=== PATIENT | male | born 1965 | race Caucasian/White ===

== ENCOUNTER 2016-10-25 10:46 | Emergency (ER) | payer BC ==
[2016-10-25 11:31] VITALS: BP 132/89
--- NOTE | 2016-10-25 12:23 | UC ---
UC General HPI - HPI Summary HPI Summary: he had laparoscopic left shoulder surgery and left wrist carpal tunnel release 5d ago. General anesthesia. Surgery went well, but ever since then he has felt extreme fatigue, some light-headedness. He has been up and moving around since surgery, wearing sling on left arm but otherwise resuming regular activities. Not using any pain meds other than Tylenol. He is surprised that he is very fatigued, occasionally light-headed. Poor appetite for past few days. This has occurred in past with surgeries (NUMEROUS joint procedures), and he has attributed it to the anesthesia. He called his Orthopedic Surgeon today to report that his left fingers are still numb, mentioned these symptoms to the telephone nurse, and she urged him to come in for evaluation. - History of Current Complaint Chief Complaint: UCGeneralIllness Stated Complaint: CHILLS LOW GRADE FEVER LOW BACK PAIN Time Seen by Provider: 10/25/16 11:56 Hx Obtained From: Patient Onset/Duration: Gradual Onset, Lasting Days - 5 Timing: Constant Onset Severity: Mild Current Severity: Mild - does seem to be improving today Associated Signs & Symptoms: Positive: Dizziness - off and on, Decreased Oral Intake - taking lots of fluids, not so hungry for food recently, Nausea - off and on, mild, Weakness - generalized. Negative: Confusion, Cough, Chest Pain, Dysuria, Diaphoresis, Fever, Hematemesis, Hemoptysis, Immunocompromised, Palpitations, Recent Medication Changes, Syncope, SOB, Trauma, Vomiting, Wheezing - Allergy/Home Medications Allergies/Adverse Reactions: Allergies Allergy/AdvReac Type Severity Reaction Status Date / Time bee stings Allergy Severe systemic Uncoded 10/25/16 11:20 reaction sodium pentothal Allergy headache, Uncoded 10/25/16 11:20 severe nausea anesthesia AdvReac takes a Uncoded 10/25/16 11:20 long time to wake up Home Medications: Home Medications Tkeidot-Qukxutnikuixr-Mjqllptp [Excedrin Extra Strength] 2 tab PO Q4H PRN [History Confirmed 10/25/16] Fenofibrate Micronized [Fenofibrate] 43 mg PO DAILY 10/25/16 [History Confirmed 10/25/16] PMH/Surg Hx/FS Hx/Imm Hx Previously Healthy: Yes - Surgical History Surgical History: Yes Surgery Procedure, Year, and Place: KNEE SX. SHOULDER SX - Family History Known Family History: Negative: Renal Disease, Respiratory Disease - Social History Occupation: Employed Full-time Lives: With Family Alcohol Use: None Substance Use Type: None Smoking Status (MU): Never Smoked Tobacco Review of Systems Constitutional: Negative Skin: Negative Eyes: Negative ENT: Negative Respiratory: Negative Cardiovascular: Negative Gastrointestinal: Negative Genitourinary: Negative Motor: Decreased ROM - left shoulder, in a sling Neurovascular: Negative Musculoskeletal: Negative Neurological: Paresthesia - left fingers Psychological: Negative All Other Systems Reviewed And Are Negative: Yes Physical Exam Triage Information Reviewed: Yes Appearance: Well-Appearing, No Pain Distress, Well-Nourished Vital Signs: Initial Vital Signs Temp 97.3 F 10/25/16 11:23 Pulse 101 10/25/16 11:23 Resp 18 10/25/16 11:23 BP 132/89 10/25/16 11:23 Pulse Ox 99 10/25/16 11:23 Vital Signs Reviewed: Yes Eye Exam: Normal ENT Exam: Normal ENT: Positive: Normal ENT inspection, Pharynx normal, TMs normal. Negative: Tonsillar swelling, Tonsillar exudate, Trismus, Muffled/hoarse voice Neck exam: Normal Neck: Positive: Supple Respiratory Exam: Normal Respiratory: Positive: Lungs clear, Normal breath sounds, No respiratory distress, No accessory muscle use Cardiovascular Exam: Normal Abdominal Exam: Normal Musculoskeletal Exam: Other - left arm in sling. Surgical sites on left shoulder look fine, minimal redness, no drainage. Left wrist surgical incision without drainage or redness. Neurological Exam: Normal, Other - animated conversation, seems to be full of energy, walks briskly around the room without distress Neurological: Positive: Alert Psychological Exam: Normal Skin Exam: Normal Course/Dx - Course Course Of Treatment: no evidence of PE or wound infection - Differential Dx - Multi-Symptom Provider Diagnoses: fatigue post-surgery Discharge - Discharge Plan Condition: Stable Disposition: HOME Patient Education Materials: Fatigue (ED) Referrals: Monica Cortez MD [Primary Care Provider] - Additional Instructions: There is no evidence that you have a wound infection from your surgery. Your urine test was normal and your vital signs are normal. There is no evidence of a blood clot in your lungs. You may be tired from the surgery itself, or possibly as a result of the anesthesia. These symptoms should fade away over the next few days.
== END 2016-10-25 12:19 | disposition home or self-care (01) ==
LOC: UCCORT 10:46
DX: R53.83 Other fatigue (principal); Z98.890 Other specified postprocedural states; Z88.4 Allergy status to anesthetic agent
CPT/HCPCS: 99211; G0463

== ENCOUNTER 2017-09-16 21:03 | Emergency (ER) | payer BC ==
[2017-09-16 21:19] VITALS: BP 141/89
--- NOTE | 2017-09-16 21:38 | UC ---
Respiratory Complaint HPI - HPI Summary HPI Summary: COUGH / CHEST CONGESTION X 4 WEEKS PND , DISCOMFORT ON HIS THROAT, NO FEVER, NO CHILLS, - History of Current Complaint Chief Complaint: UCRespiratory Stated Complaint: RESPIRATORY Time Seen by Provider: 09/16/17 21:13 Hx Obtained From: Patient Onset/Duration: Gradual Onset, Lasting Weeks - 4, Still Present Timing: Constant Severity Initially: Moderate Severity Currently: Moderate Character: Cough: Nonproductive Aggravating Factors: Deep Breaths Associated Signs And Symptoms: Positive: URI. Negative: Fever, Chills, Pleuritic Chest Pain - Allergies/Home Medications Allergies/Adverse Reactions: Allergies Allergy/AdvReac Type Severity Reaction Status Date / Time bee stings Allergy Severe systemic Uncoded 09/16/17 21:18 reaction sodium pentothal Allergy headache, Uncoded 09/16/17 21:18 severe nausea anesthesia AdvReac takes a Uncoded 09/16/17 21:18 long time to wake up PMH/Surg Hx/FS Hx/Imm Hx Previously Healthy: Yes - Surgical History Surgical History: Yes Surgery Procedure, Year, and Place: KNEE SX. SHOULDER SX - Family History Known Family History: Negative: Renal Disease, Respiratory Disease - Social History Alcohol Use: None Substance Use Type: None Smoking Status (MU): Never Smoked Tobacco Review of Systems Constitutional: Negative Skin: Negative Eyes: Negative ENT: Other - PND Respiratory: Cough Is Patient Immunocompromised?: No All Other Systems Reviewed And Are Negative: Yes Physical Exam Triage Information Reviewed: Yes Appearance: Well-Appearing, No Pain Distress, Well-Nourished Vital Signs: Initial Vital Signs Temp 97.7 F 09/16/17 21:11 Pulse 77 09/16/17 21:11 Resp 16 09/16/17 21:11 BP 141/89 09/16/17 21:11 Pulse Ox 98 09/16/17 21:11 Vital Signs Reviewed: Yes Eyes: Positive: Conjunctiva Clear ENT: Positive: Normal ENT inspection, Hearing grossly normal, Pharynx normal. Negative: Nasal drainage Neck: Positive: Supple, Nontender, No Lymphadenopathy Respiratory: Positive: Chest non-tender, Lungs clear, Normal breath sounds Cardiovascular: Positive: RRR, No Murmur, Pulses Normal Skin Exam: Normal UC Diagnostic Evaluation - Laboratory O2 Sat by Pulse Oximetry: 98 Respiratory Course/Dx - Differential Dx/Diagnosis Provider Diagnoses: URI Discharge - Discharge Plan Condition: Stable Disposition: HOME Patient Education Materials: Upper Respiratory Infection (ED) Referrals: Monica Cortez MD [Primary Care Provider] - 2 Weeks Additional Instructions: CLEAR LUNGS, NORMAL PHYSICAL EXAM ? GERD / POST NASAL DRIP TRY FLONASE NASAL SPRAY 2SPRAY EACH NOSTRIL DAILY FOR THE NEXT 2 WEEKS PLEASE FOLLOW UP WITH YOUR PCP IN 2 TO 4 WEEKS IF NOT BETTER, MAY NEED A REFERRAL TO ENT IF NOT BETTER
== END 2017-09-16 21:39 | disposition home or self-care (01) ==
LOC: UCCORT 21:03
DX: J06.9 Acute upper respiratory infection, unspecified (principal); Z88.8 Allergy status to other drugs, medicaments and biological substances; Z88.4 Allergy status to anesthetic agent; Z91.030 Bee allergy status
CPT/HCPCS: 99211; G0463

== ENCOUNTER 2019-05-11 21:44 | Emergency (ER) | payer BC ==
--- OUTSIDE RECORDS SUMMARY | 2019-05-11 21:51 | XMS REPORT | Continuity of Care Document ---
:1965 External Reference #:[id number] Author Name Monica Cortez MD (transmitted by agent of provider Opal Camacho) Address [address] [place] [address] Problems Active Problems Provider Date Testicular hypofunction Monica Cortez MD Onset: 11/11/2011 Generalized anxiety disorder Monica Cortez MD Onset: 11/11/2011 Dizziness and giddiness Monica Cortez MD Onset: 10/04/2012 Allergic rhinitis Monica Cortez MD Onset: 10/11/2012 Partial Tear Of Rotator Cuff Monica Cortez MD Onset: 06/13/2013 Social History Type Date Description Comments Sex Unknown Tobacco Use Start: Unknown Never Smoked Cigarettes ETOH Use Denies alcohol use Recreational Drug Use Denies Drug Use Tobacco Use Start: Unknown Patient has never smoked Smoking Status Reviewed: 09/07/17 Patient has never smoked Allergies, Adverse Reactions, Alerts Active Allergies Reaction Severity Comments Date Levaquin dizziness 07/21/2010 Sodium Pentathol 09/07/2017 Medications Active Medications SIG Qnty Indications Ordering Date Provider Vitamin D-1000 2 by mouth every 100tabs Monica Cortez MD 04/19/2019 Maximum Strength day 1000Unit Tablets Tricor 1 tab po qd 90tabs Monica Cortez MD 07/07/2016 48mg Tablets Paxil 1 tab by mouth 90tabs Monica Cortez MD 06/19/2015 20mg Tablets qd. Epipen 2-Aníbal as directed as 1unoskar Maza, 03/11/2006 needed M.D. 0.3mg/0.3ML Solution Auto-Inject Zyrtec Allergy tab 1 po q day 30caps Unknown 10mg Capsules [facility] Esomeprazole Unknown Magnesium 20mg Capsules Vitamin D-1000 1 by mouth every Unknown Maximum Strength day 1000Unit Tablets Multi For Him 1 by mouth every Unknown Tablets day Medications Administered in Office Medication SIG Qnty Indications Ordering Provider Date H1N1 Administration-Use Monica Cortez MD 07/03/2009 Injection Immunizations CPT Code Status Date Vaccine Lot # [id number] Given 05/22/2018 Influenza Virus (Afluria) Split Virus 3 Years Of Age And Older [id number] Given 05/22/2018 Influenza Virus (Afluria) Split Virus 3 Years Of Age And Older [id number] Given 05/11/2017 Influenza Virus (Afluria) Split Virus 3 Years Of Age And Older [id number] Given 05/11/2017 Influenza Virus (Afluria) Split Virus 3 Years [id number] Of Age And Older [id number] Given 04/28/2016 Influenza Vaccine (Fluvirin) 3 Years Of Age Or [id number] Older [id number] Given 04/30/2015 Influenza Virus (Afluria) Split Virus 3 Years [id number] Of Age And Older [id number] Given 05/13/2014 Influenza Vaccine (Fluvirin) 3 Years Of Age Or Older [id number] Given 05/13/2014 Influenza Vaccine (Fluvirin) 3 Years Of Age Or [id number] Older Q2038 Given 05/16/2013 Influenza Vaccine (Fluzone) Administered Age 3 [id number] And Older Q2038 Given 05/16/2013 Influenza Vaccine (Fluzone) Administered Age 3 And Older Q2037 Given 05/08/2012 Influenza Vaccine (Fluvirin) 3 Years Of Age Or Older [id number] Given 05/08/2012 Influenza Vaccine (Fluvirin) 3 Years Of Age Or [id number] Older [id number] Given 11/11/2011 Tetanus,Diphtheria,Adut/Adol Pertussis [id number] Given 06/03/2011 Flulaval [id number] Given 05/18/2010 Influenza Vaccine [id number] Given 01/14/2010 Tetanus Shot [id number] 75054 Given 04/15/2009 Influenza Vaccine [id number] 73432 Given 05/23/2008 Influenza Vaccine [id number] Given 08/29/1997 DT Immunization DIP/Tet (History Only) Vital Signs Date Vital Result Comment 04/19/2019 1:46pm BP Systolic 130 mmHg BP Diastolic 82 mmHg Heart Rate 82 /min Height 71 inches 5'11" Weight 252.00 lb BMI (Body Mass Index) 35.1 kg/m2 O2 % BldC Oximetry 95 % 10/18/2018 11:09am BP Systolic 128 mmHg BP Diastolic 88 mmHg Results Test Date Facility Test Result H/L Range Note Basic Metabolic 04/09/2019 [facility] Glucose 88 mg/ dL Normal 74-106 [address] [place] [address] [phone] BUN 15 mg/dL Normal 7-18 Creatinine 1.3 mg/dL Normal 0.6-1.3 Glom Filtration Rate, Estimate >60 mL/min >60 If >60 mL/min >60 2 BUN/Creat 11.5 ratio Sodium 141 mmol/L Normal 136-145 Potassium 3.9 mmol/L Normal 3.5-5.1 Chloride 108 mmol/L High 98-107 Carbon Dioxide 26 mmol/L Normal 21-32 Anion Gap 7 mEq/L Low 8-16 Calcium 8.8 mg/dL Normal 8.5-10.1 CBS W/Automated 04/09/2019 [facility] White 4.8 K/uL Normal 3.4-10.[address] [place] [address] Count [phone] Red Blood Count 5.30 M/uL Normal 4.20-5.80 Hemoglobin 14.9 gm/dL Normal 12.8-17.0 Hematocrit 46.7 % Normal 38.0-48.0 Mean Cell Volume 88.1 fl Normal 80.0-96.0 Mean Corpuscular HGB 28.1 pg Normal 27.0-33.0 Mean Corpuscular HGB Conc 31.9 g/dL Normal 31.7-36.0 Platelet Count 226 K/uL Normal 155-360 Red Cell Distri Width SD 43.5 fl Normal 36-51 Red Cell Distri Width %CV 13.5 % Normal 11.6-15.8 Mean Platelet Volume 10.3 fl Normal 6.6-10.6 Neut% 47.2 % Normal 33.0-73.0 Lymph % 36.0 % Normal 20.0-42.0 [place] % 11.8 % High 0.0-10.0 Eo% 3.6 % Normal 0.0-6.6 Bas% 0.8 % Normal 0.0-1.1 Immature Grans 0.6 % Normal 0.0-5.0 NRBC % 0.0 /100WBC < 10/ 100 WBC Neut# 2.24 K/uL Normal 1.8-7.0 Lymph # 1.71 K/uL Normal 1.0-4.0 [place] # 0.56 K/uL Normal 0.0-0.8 Eos # 0.17 K/uL Normal 0.0-0.5 Baso # 0.04 K/uL Normal 0.0-0.1 Immature Grans Absolute 0.03 K/uL NRBC # 0.00 K/uL LDL Cholesterol 04/09/2019 [facility] Cholesterol 166 mg/dL <200 3 [address] [place], [place] [id number] [phone] Triglycerides 240 mg/dL High <150 4 HDL Cholesterol 30 mg/dL Low >40 5 LDL-Cholesterol 88 mg/dL < 100 6 Laboratory test 12/30/2018 [facility] CK 137 U/L Normal 39-308 [address] [place], [place] [id number] [phone] 1 Z12.5 E29.1 E23.6 I34.0 E78.5 2 Note: Persistent reduction for 3 months or more in an eGFR <60 mL/min/1.73 m2 defines CKD. Patients with eGFR values >/=60 mL/min/1.73 m2 may also have CKD if evidence of persistent proteinuria is present. The original MDRD equation for estimated GFR is not valid for patients less than 18 years of age. Additional information may be found at www.kdoqi.org. 3 Reference Guidelines*: Desirable: ........... < 200 mg/dL Borderline High: ..... 200-239 mg/dL High: ................ >= 240 mg/dL * The National Cholesterol Education Program (NCEP) 4 Reference Guidelines*: Normal: ............. < 150 mg/dL Borderline High: .... 150-199 mg/dL High: ............... 200-499 mg/dL Very High: .......... > 500 mg/dL * Source: National Cholesterol Education Program (NCEP) 5 Reference Guidelines*: Low HDL: ..... < 40 mg/dL Normal: ..... 40-60 mg/dL Desirable: ... > 60 mg/dL *The National Cholesterol Education Program(NCEP) 6 Reference Guidelines*: Optimal:........... <100 mg/dL Near Optimal....... 100-129 mg/dL Borderline High.... 130-159 mg/dL High............... 160-189 mg/dL Very High.......... >=190 mg/dL * Source: National Cholesterol Education Program (NCEP) 7 E78.5 I11.0 E29.1 Procedures Description No Information Available Medical Devices Description No Information Available Encounters Type Date Location Provider Dx Diagnosis Office Visit 04/19/2019 Main Office Monica Cortez MD E29.1 Testicular hypofunction 1:45p F41.1 Generalized anxiety disorder K21.0 Gastro-esophageal reflux disease with esophagitis E78.5 Hyperlipidemia, unspecified Assessments Date Code Description Provider 04/19/2019 E29.1 Testicular hypofunction Monica Cortez MD 04/19/2019 F41.1 Generalized anxiety disorder Monica Cortez MD 04/19/2019 K21.0 Gastro-esophageal reflux disease with esophagitis Monica Cortez MD 04/19/2019 E78.5 Hyperlipidemia, unspecified Monica Cortez MD Plan of Treatment Future Appointment(s):10/15/2019 8:00 am - Nurse at Main Yxmmpt0110/29/2019 3: 00 pm - Monica Cortez MD at Main Uclrnb5904/19/2019 - Monica Cortez MDE29.1 Testicular znvjogyrpwhdR30.1 Generalized anxiety sxnobmlcW76.0 Gastro-esophageal reflux disease with peohchlwjxrU88.5 Hyperlipidemia, unspecifiedAllNew Medication: Vitamin D-1000 Maximum Strength 1000 Unit - 2 by mouth every dayComments:UARTO NEXT WEEK NURSE VISIT FOR FLU VACRTO SEP FOR CPEGHP,LIPIDS BEFORE VISIT Functional Status Description No Information Available Mental Status Description No Information Available Referrals Description No Information Available
--- OUTSIDE RECORDS SUMMARY | 2019-05-11 21:51 | XMS REPORT | Continuity of Care Document ---
:1965 External Reference #:[id number] Author Name Adrián Gardner PA Address [address] [facility], [address] [place] [address] Care Team Providers Name Role Phone Monica Cortez MD - Internal Medicine Care Team Information Travel Service Consultant Problems Active Problems Provider Date Chest pain Turner Armas M.D., Onset: 08/24/2013 [facility] Benign essential hypertension Turner Armas M.D., Onset: 08/24/2013 [facility] Gastroesophageal reflux disease Mike Rodriguez MD Onset: 11/03/2017 Screening for malignant neoplasm of Mike Rodriguez MD Onset: 11/03/2017 colon Social History Type Date Description Comments Sex Unknown Tobacco Use Start: Unknown Never Smoked Cigarettes Smokeless Tobacco Former Smokeless Tobacco User, Used Occasionally ETOH Use Rarely consumes alcohol Tobacco Use Start: Unknown Patient denies history of smoking Recreational Drug Use Denies Drug Use Smoking Status Reviewed: 03/08/19 Patient denies history of smoking Allergies, Adverse Reactions, Alerts Active Allergies Reaction Severity Comments Date Bee Sting Sodium Pentathol Medications Active Medications SIG Qnty Indications Ordering Date Provider Esomeprazole take 1 capsule 30caps Mike Rodriguez, 04/24/2018 Magnesium every morning 20mg Capsules Paroxetine HCL 1 po qd 90tabs Unknown 20mg Tablets Epipen 2-Aníbal prn- for allergic Unknown reactions 0.3mg/0.3ML Device Fenofibrate 1 tab po qd Monica Cortez MD 48mg Tablets Multivitamin Adult 1 by mouth every Unknown day Tablets Immunizations Description No Information Available Vital Signs Date Vital Result Comment 03/08/2019 2:32pm BP Systolic 134 mmHg BP Diastolic 95 mmHg Body Temperature 97.8 F Heart Rate 79 /min Respiratory Rate 16 /min Height 72 inches 6'0" Weight 251.00 lb BMI (Body Mass Index) 34.0 kg/m2 BSA (Body Surface Area) 2.35 m2 [place] body weight in kilograms 81 kg O2 % BldC Oximetry 95 % 03/08/2019 2:29pm Respiratory Rate 16 /min Weight 251.06 lb Results Test Date Facility Test Result H/L Range Note Laboratory test 04/09/2019 [facility] Prostate 0.83 ng/mL < 4.0 1, [address] [place] [address] Antigen [phone] CBC W/Automated 04/09/2019 [facility] White Blood 4.8 K/uL Normal 3.4-10.[address] [place] [address] [phone] Red Blood Count 5.30 M/uL Normal 4.20-5.80 [...] 33.0-73.0 Lymph % 36.0 % Normal 20.0-42.0 [place] % 11.8 % High 0.0-10.0 Eo% 3.6 % Normal 0.0-6.6 Bas% 0.8 % Normal 0.0-1.1 Immature Grans 0.6 % Normal 0.0-5.0 NRBC % 0.0 /100WBC < 10/ 100 WBC Neut# 2.24 K/uL Normal 1.8-7.0 Lymph # 1.71 K/uL Normal 1.0-4.0 [place] # 0.56 K/uL Normal 0.0-0.8 Eos # 0.17 K/uL Normal 0.0-0.5 Baso # 0.04 K/uL Normal 0.0-0.1 Immature Grans Absolute 0.03 K/uL NRBC # 0.00 K/uL Basic Metabolic Panel 04/09/2019 [facility] Glucose 88 mg/dL Normal 74-106 [address] [place] [address] [phone] BUN 15 mg/dL Normal 7-18 Creatinine 1.3 mg/dL Normal 0.6-1.3 Glom Filtration Rate, Estimate >60 mL/min >60 If >60 mL/min >60 3 BUN/Creat 11.5 ratio Sodium 141 mmol/L Normal 136-145 Potassium 3.9 mmol/L Normal 3.5-5.1 Chloride 108 mmol/L High 98-107 Carbon Dioxide 26 mmol/L Normal 21-32 Anion Gap 7 mEq/L Low 8-16 Calcium 8.8 mg/dL Normal 8.5-10.1 LDL Cholesterol Profile 04/09/2019 [facility] Cholesterol 166 mg/dL <200 4 [address] [place] [address] [phone] Triglycerides 240 mg/dL High <150 5 HDL Cholesterol 30 mg/dL Low >40 6 LDL-Cholesterol 88 mg/dL < 100 7 Laboratory 04/09/2019 [facility] Testosterone,Serum 247 Low 264-916 8 test finding [address] ng/[place] [address] [phone] Laboratory 03/08/2019 [facility] Prostate Specific 0.95 < 4.0 9, test finding [address] Antigen ng/mL 10 [place] [address] [phone] Testosterone,Serum 209 ng/dL Low 264-916 11 1 Z12.5 E29.1 E23.6 I34.0 E78.5 2 THIS ASSAY IS NOT INTENDED A CANCER SCREENING TEST The concentration of PSA in a given specimen, determined with assays from different manufacturers, can vary due to differences in assay methods and reagent specificity. Values obtained from different assay methods cannot be used interchangeably. Method: Alert[employer]prise Montalba Chemiluminescent immunoassay. 3 Note: Persistent reduction for 3 months or more in an eGFR <60 mL/min/1.73 m2 defines CKD. Patients with eGFR values >/=60 mL/min/1.73 m2 may also have CKD if evidence of persistent proteinuria is present. The original MDRD equation for estimated GFR is not valid for patients less than 18 years of age. Additional information may be found at www.kdoqi.org. 4 Reference Guidelines*: Desirable: ........... < 200 mg/dL Borderline High: ..... 200-239 mg/dL High: ................ >= 240 mg/dL * The National Cholesterol Education Program (NCEP) 5 Reference Guidelines*: Normal: ............. < 150 mg/dL Borderline High: .... 150-199 mg/dL High: ............... 200-499 mg/dL Very High: .......... > 500 mg/dL * Source: National Cholesterol Education Program (NCEP) 6 Reference Guidelines*: Low HDL: ..... < 40 mg/dL Normal: ..... 40-60 mg/dL Desirable: ... > 60 mg/dL *The National Cholesterol Education Program(NCEP) 7 Reference Guidelines*: Optimal:........... <100 mg/dL Near Optimal....... 100-129 mg/dL Borderline High.... 130-159 mg/dL High............... 160-189 mg/dL Very High.......... >=190 mg/dL * Source: National Cholesterol Education Program (NCEP) 8 Adult male reference interval is based on a population of healthy nonobese males (BMI <30) between 19 and 39 years old. michael Cespedes.al. JCEM 2017,102;6735-7890. PMID: 67447930. Performed at: RN - [facility] [address] [id number] Hydraulic Auto Jack Mechanic: Ashlee Byrnes MD, Phone: [phone] 9 Z12.5 E29.1 10 THIS ASSAY IS NOT INTENDED A CANCER SCREENING TEST The concentration of PSA in a given specimen, determined with assays from different manufacturers, can vary due to differences in assay methods and reagent specificity. Values obtained from different assay methods cannot be used interchangeably. Method: Siemens Dimension Montalba Chemiluminescent immunoassay. 11 Adult male reference interval is based on a population of healthy nonobese males (BMI <30) between 19 and 39 years old. Coy et.al. JCEM 2017,102;8330-9568. PMID: 48253890. Performed at: [facility] [id number] Hydraulic Auto Jack Mechanic: Ashlee Byrnes MD, Phone: [phone] Procedures Date Code Description Status 03/08/2019 72884 Anoscopy Completed 04/24/2018 39345757 Colonoscopy Completed Medical Devices Description No Information Available Encounters Type Date Location Provider Dx Diagnosis Office Visit 03/08/2019 GI Mike Rodriguez MD K64.0 First degree 3:00p hemorrhoids K63.5 Polyp of colon K21.0 Gastro-esophageal reflux disease with esophagitis Office Visit 11/24/2018 Orthopaedic Freddie, S83.211D Bucket-hndl tear 3:00p Office Mamie Cueva, of medial mensc, RPAC crnt injury, r knee, subs M23.611 Oth spon disrupt of anterior cruciate ligament of right knee M17.11 Unilateral primary osteoarthritis, right knee M25.461 Effusion, right knee Office Visit 10/31/2018 2:45p Orthopaedic Office Mamie Frazier M25.561 Pain in S., RPAC right knee M17.11 Unilateral primary osteoarthritis, right knee M11.261 Other chondrocalcinosis, right knee Assessments Date Code Description Provider 03/08/2019 E29.1 Testicular hypofunction Adrián Gardner PA 03/08/2019 K64.0 First degree hemorrhoids Mike Rodriguez MD 03/08/2019 Z12.5 Encounter for screening for malignant Adrián Gardner PA neoplasm of prostate 03/08/2019 K63.5 Polyp of colon Mike Rodriguez MD 03/08/2019 K21.0 Gastro-esophageal reflux disease with Mike Rodriguez MD esophagitis 11/24/2018 S83.211D Bucket-handle tear of medial meniscus, FrazierLuzmaria valientemauro Cueva, [facility] current injury, right 11/24/2018 M23.611 Other spontaneous disruption of anterior Mamie Frazier., [facility] cruciate ligament o 11/24/2018 M17.11 Unilateral primary osteoarthritis, right Mamie Frazier S., [facility] knee 11/24/2018 M25.461 Effusion, right knee Mamie Frazier S., [facility] 10/31/2018 M25.561 Pain in right knee Mamie Frazier S., [facility] 10/31/2018 M17.11 Unilateral primary osteoarthritis, right Mamie Frazier., [facility] knee 10/31/2018 M11.261 Other chondrocalcinosis, right knee Mamie Frazier, [facility] Plan of Treatment Future Appointment(s):03/07/2020 2:30 pm - Adriná Gardner, PA at Jsqvrxj5706/2019 - Adrián Gardner, PAE29.1 Testicular hypofunctionComments:We'll draw baseline testosterone. Should he wish to consider further testosterone supplementation until contact [facility]2.5 Encounter for screening for malignant neoplasm of prostateComments:Exam benign. His PSAs have remained low. Unless otherwise indicated follow-up 12 months Functional Status Functional Condition Comment Date Status Independent with all ADL's Active Mental Status Description No Information Available Referrals Refer to Dr Reason for Referral Status Appt Date Al Villafuerte MD Patient has xray CD from [place]. He will Closed 03/2019 also bring MRI CD with him from [facility] to the appointment. [facility] [address], [address] [place] [id number] [phone]
--- OUTSIDE RECORDS SUMMARY | 2019-05-11 21:51 | XMS REPORT | Continuity of Care Document ---
:1965 External Reference #:[id number] Author Name Monica Cortez MD (transmitted by agent of provider Susan Marroquin) Address [address] [place] [address] Problems Active Problems Provider Date Testicular hypofunction [...] Medications Active Medications SIG Qnty Indications Ordering Provider Date Tricor 1 tab po qd 90tabs Monica Cortez MD 07/07/2016 48mg Tablets Paxil 1 tab by mouth 90tabs Monica Cortez MD 06/19/2015 20mg Tablets qd. Epipen 2-Aníbal as directed as 1unoskar Maza M.D. 03/11/2006 needed 0.3mg/0.3ML Solution Auto-Inject Zyrtec Allergy tab 1 po q day 30caps Unknown 10mg Capsules [facility] Esomeprazole Unknown Magnesium 20mg Capsules DR Vitamin D-1000 1 by mouth every Unknown [...] Influenza Virus (Afluria) Split Virus 3 Years [id number] Of Age And Older Q2037 Given 04/28/2016 Influenza Vaccine (Fluvirin) 3 Years Of Age Or [id number] Older Q2035 Given 04/30/2015 Influenza Virus (Afluria) Split Virus 3 Years [id number] Of Age And Older Q2037 Given 05/13/2014 Influenza Vaccine (Fluvirin) 3 Years Of Age Or Older Q2037 Given 05/13/2014 Influenza Vaccine (Fluvirin) 3 Years Of Age Or [id number] Older Q2038 Given 05/16/2013 Influenza Vaccine (Fluzone) Administered Age 3 [id number] And Older Q2038 Given 05/16/2013 Influenza Vaccine (Fluzone) Administered Age 3 And Older Q2037 Given 05/08/2012 Influenza Vaccine (Fluvirin) 3 Years Of Age Or Older Q2037 Given 05/08/2012 Influenza Vaccine (Fluvirin) 3 Years Of Age Or [id number] Older 37665 Given 11/11/2011 Tetanus,Diphtheria,Adut/Adol Pertussis [id number] Q2036 Given 06/03/2011 Flulaval [id number] 31618 Given 05/18/2010 Influenza Vaccine [id number] 68040 Given 01/14/2010 Tetanus Shot [id number] 93394 Given 04/15/2009 Influenza Vaccine [id number] 27553 Given 05/23/2008 Influenza Vaccine [id number] 66565 Given 08/29/1997 DT Immunization DIP/Tet (History Only) [...] Result H/L Range Note Basic Metabolic 04/09/2019 [facility] Glucose 88 mg/ dL Normal 74-106 [address] [place] [address] [phone] BUN 15 mg/dL Normal 7-18 Creatinine 1.3 mg/dL Normal 0.6-1.3 Glom Filtration Rate, Estimate >60 mL/min >60 If >60 mL/min >60 2 BUN/Creat 11.5 ratio Sodium 141 mmol/L Normal 136-145 Potassium 3.9 mmol/L Normal 3.5-5.1 Chloride 108 mmol/L High 98-107 Carbon Dioxide 26 mmol/L Normal 21-32 Anion Gap 7 mEq/L Low 8-16 Calcium 8.8 mg/dL Normal 8.5-10.1 CBS W/Automated 04/09/2019 [facility] White 4.8 K/uL Normal 3.4-10.[address] [place] [address] Count [phone] Red Blood Count 5.30 M/uL Normal 4.20-5.80 [...] 33.0-73.0 Lymph % 36.0 % Normal 20.0-42.0 [place] % 11.8 % High 0.0-10.0 Eo% 3.6 % Normal 0.0-6.6 Bas% 0.8 % Normal 0.0-1.1 Immature Grans 0.6 % Normal 0.0-5.0 NRBC % 0.0 /100WBC < 10/ 100 WBC Neut# 2.24 K/uL Normal 1.8-7.0 Lymph # 1.71 K/uL Normal 1.0-4.0 [place] # 0.56 K/uL Normal 0.0-0.8 Eos # 0.17 K/uL Normal 0.0-0.5 Baso # 0.04 K/uL Normal 0.0-0.1 Immature Grans Absolute 0.03 K/uL NRBC # 0.00 K/uL LDL Cholesterol 04/09/2019 [facility] Cholesterol 166 mg/dL <200 [address] [place], [place] [id number] [phone] Triglycerides 240 mg/dL High <150 4 HDL Cholesterol 30 mg/dL Low >40 5 LDL-Cholesterol 88 mg/dL < 100 6 Laboratory test 12/30/2018 [facility] CK 137 U/L Normal 39-308 [address] [place], [place] [id number] [phone] 1 Z12.5 E29.1 E23.6 I34.0 E78.5 2 [...] Medical Devices Description No Information Available Encounters Description No Information Available Assessments Description No Information Available Plan of Treatment No Information Available Functional Status Description No Information Available Mental Status Description No Information Available Referrals Description No Information Available
--- OUTSIDE RECORDS SUMMARY | 2019-05-11 21:51 | XMS REPORT | Continuity of Care Document ---
:1965 External Reference #:[id number] Author Name Monica Cortez MD Address [address] [place] [address] Problems Active Problems Provider Date Testicular hypofunction [...] Influenza Virus (Afluria) Split Virus 3 Years [id number] Of Age And Older Q2037 Given 04/28/2016 Influenza Vaccine (Fluvirin) 4 Years Of Age Or [id number] Older Q2035 Given 04/30/2015 Influenza Virus (Afluria) Split Virus 3 Years [id number] Of Age And Older Q2037 Given 05/13/2014 Influenza Vaccine (Fluvirin) 3 Years Of Age Or Older Q2037 Given 05/13/2014 Influenza Vaccine (Fluvirin) 3 Years Of Age Or [id number] Older Q2038 Given 05/16/2013 Influenza Vaccine (Fluzone) Administered Age 3 [id number] And Older Q2038 Given 05/16/2013 Influenza Vaccine (Fluzone) Administered Age 3 And Older Q2037 Given 05/08/2012 Influenza Vaccine (Fluvirin) 3 Years Of Age Or Older Q2037 Given 05/08/2012 Influenza Vaccine (Fluvirin) 3 Years Of Age Or [id number] Older 54110 Given 11/11/2011 Tetanus,Diphtheria,Adut/Adol Pertussis [id number] Q2036 Given 06/03/2011 Flulaval [id number] 38105 Given 05/18/2010 Influenza Vaccine [id number] 79494 Given 01/14/2010 Tetanus Shot [id number] 12246 Given 04/15/2009 Influenza Vaccine [id number] 07690 Given 05/23/2008 Influenza Vaccine [id number] 98245 Given 08/29/1997 DT Immunization DIP/Tet (History Only) [...] Result H/L Range Note Basic Metabolic 04/09/2019 [facility] Glucose 88 mg/ dL Normal 74-106 [address] [place], [place] [address] [phone] BUN 15 mg/dL Normal 7-18 Creatinine 1.3 mg/dL Normal 0.6-1.3 Glom Filtration Rate, Estimate >60 mL/min >60 If >60 mL/min >60 2 BUN/Creat 11.5 ratio Sodium 141 mmol/L Normal 136-145 Potassium 3.9 mmol/L Normal 3.5-5.1 Chloride 108 mmol/L High 98-107 Carbon Dioxide 26 mmol/L Normal 21-32 Anion Gap 7 mEq/L Low 8-16 Calcium 8.8 mg/dL Normal 8.5-10.1 CBS W/Automated 04/09/2019 [facility] White 4.8 K/uL Normal 3.4-10.[address] [place] [address] Count [phone] Red Blood Count 5.30 M/uL Normal 4.20-5.80 [...] 33.0-73.0 Lymph % 36.0 % Normal 20.0-42.0 [place] % 11.8 % High 0.0-10.0 Eo% 3.6 % Normal 0.0-6.6 Bas% 0.8 % Normal 0.0-1.1 Immature Grans 0.6 % Normal 0.0-5.0 NRBC % 0.0 /100WBC < 10/ 100 WBC Neut# 2.24 K/uL Normal 1.8-7.0 Lymph # 1.71 K/uL Normal 1.0-4.0 [place] # 0.56 K/uL Normal 0.0-0.8 Eos # 0.17 K/uL Normal 0.0-0.5 Baso # 0.04 K/uL Normal 0.0-0.1 Immature Grans Absolute 0.03 K/uL NRBC # 0.00 K/uL LDL Cholesterol 04/09/2019 [facility] Cholesterol 166 mg/dL <200 [address] [place], [place] [address] [phone] Triglycerides 240 mg/dL High <150 4 HDL Cholesterol 30 mg/dL Low >40 5 LDL-Cholesterol 88 mg/dL < 100 6 Laboratory test 12/30/2018 [facility] CK 137 U/L Normal 39-308 [address] [place], [place] [address] [phone] 1 Z12.5 E29.1 E23.6 I34.0 E78.5 2 [...] Appointment(s):10/15/2019 8:00 am - Nurse at Main Oplpmw6310/29/2019 3: 00 pm - Monica Cortez MD at Main Ccdfml6104/19/2019 - Monica Cortez MDE29.1 Testicular hypofunctionComments:WAS ON TESTIM PELLETS (6 Q 3 MONTHS) BY UROLOGYTESTOSTERONE LEVELS BY SAMENANCYW SEEING [facility] AGAIN, OFF TESTIMJOSLIN MANAGING AND RE-EVALUATING, CURRENTLY NOT ON ANY TNKSTTCKJIAN29.1 Generalized anxiety disorderComments:CONT PAXIL.., NO CHANGES MADENO ADVERSE EFFECTS JZCJLG17.0 Gastro-esophageal reflux disease with esophagitisComments:FU GI, INTERESTED IN CORRECTION, SXFNZAHEJKL95.5 Hyperlipidemia, unspecifiedComments:CONTINUE TRICORLIPID PANEL EXCELLENTLIPID PANEL 6 MONTHSAllNew Medication:Vitamin D-1000 Maximum Strength 1000 Unit - 2 by mouth every dayComments:UARTO NEXT WEEK NURSE VISIT FOR FLU VACRTO SEP FOR CPEGHP, LIPIDS BEFORE VISIT Functional Status Description No Information Available Mental Status Description No Information Available Referrals Description No Information Available
--- NOTE | 2019-05-11 21:57 | UC ---
Skin Complaint HPI - HPI Summary HPI Summary: 53-year-old male who has possible athlete's foot in between his toes on his right foot however the fourth toe has become red and swollen over the past day. He denies any fever or chills. No known injury. - History of Current Complaint Time Seen by Provider: 05/11/19 21:54 Stated Complaint: TOE COMPLAINT Hx Obtained From: Patient Onset/Duration: Gradual Onset Skin Exposure Onset/Duration: Worse Since: - Worse in the past 24 hours. Timing: Constant Onset Severity: Mild Current Severity: Moderate Location: Foot (Right) - The athlete's foot is between his third and fourth and fifth toes however the fourth toe is red and swollen., Other Character: Swelling, Pruritus, Pain, Redness Aggravating Factor(s): Touch Alleviating Factor(s): Nothing, Other - Patient has been using some antifungal spray. Associated Signs & Symptoms: Positive: Negative - Allergy/Home Medications Allergies/Adverse Reactions: Allergies Allergy/AdvReac Type Severity Reaction Status Date / Time bee stings Allergy Severe systemic Uncoded 05/11/19 21:58 reaction sodium pentothal Allergy headache, Uncoded 05/11/19 21:58 severe nausea anesthesia AdvReac takes a Uncoded 05/11/19 21:58 long time to wake up Home Medications: Home Medications Cholecalciferol TAB* [Vitamin D TAB*] 2,000 units PO DAILY 05/11/19 [History Confirmed 05/11/19] PMH/Surg Hx/FS Hx/Imm Hx Previously Healthy: Yes - Surgical History Surgical History: Yes Surgery Procedure, Year, and Place: KNEE SX-THREE TIMES. SHOULDER SX- FOUR TIMES , TWO ON BOTH SIDES. CARPAL TUNNEL REPAIR - Family History Known Family History: Positive: Cardiac Disease, Hypertension Negative: Renal Disease, Respiratory Disease - Social History Alcohol Use: None Substance Use Type: None Smoking Status (MU): Never Smoked Tobacco Review of Systems All Other Systems Reviewed And Are Negative: Yes Skin: Positive: Rash - Athlete's foot in between third and fourth and fifth toes., Other - The fourth toe right foot is swollen and mildly erythematous. Motor: Positive: Negative Neurovascular: Positive: Negative Musculoskeletal: Positive: Other: - Mild pain and swelling to right fourth toe. Is Patient Immunocompromised?: No Physical Exam Triage Information Reviewed: Yes Appearance: Well-Appearing, No Pain Distress, Well-Nourished Vital Signs Reviewed: Yes Musculoskeletal: Positive: Strength Intact, ROM Intact, Other: Neurological: Positive: Alert, Muscle Tone Normal Psychological Exam: Normal Skin: Positive: Rashes - Patient has what appears to be athlete's foot between the third fourth and fifth toes. I don't necessarily visualize any source of the cellulitis of the fourth toe but it may be the athlete's foot itself and the breakdown of the skin that's causing that. His right fourth toe is mildly erythematous tender on palpation and swollen. He has good peripheral pulses, neuro sensation and capillary refill. Course/Dx - Course Course Of Treatment: The patient is to continue his antifungal medication and I'm starting him on cephalexin with one dose given here. He is to make sure that, as he is able, to wear shoes that allow his feet to breathe and is to follow-up with his primary care provider for any worsening symptoms such as red streaks up his foot or leg, fever. The patient is agreeable to this plan of action. He can also follow-up with a flash welder if no improvement in the athlete's foot or the cellulitis. - Diagnoses Provider Diagnosis: Cellulitis of fourth toe, right, Athlete's foot on right Discharge ED - Sign-Out/Discharge Documenting (check all that apply): Patient Departure All imaging exams completed and their final reports reviewed: No Studies - Discharge Plan Condition: Good Disposition: HOME Prescriptions: Cephalexin CAP* [Keflex 500 CAP*] 500 mg PO TID 10 Days #30 cap Patient Education Materials: Cellulitis (DC) Referrals: Monica Cortez MD [Primary Care Provider] - Costa Newell DPM [Doctor of Podiatric Medicine] - Additional Instructions: Keep your feet open to the area as much as possible. Continue to use the antifungal spray or cream. Follow-up with the flash welder if no improvement in 4 or 5 days. - Billing Disposition and Condition Condition: GOOD Disposition: Home
[2019-05-11 21:58] VITALS: BP 130/92
[2019-05-11] MEDS ORDERED: Cephalexin CAP* 500 MG PO ONE (21:58)
== END 2019-05-11 22:04 | disposition home or self-care (01) ==
LOC: UCCORT 21:44
DX: L03.031 Cellulitis of right toe (principal); B35.3 Tinea pedis; Z88.4 Allergy status to anesthetic agent; Z91.030 Bee allergy status
CPT/HCPCS: 99212; A9270-GY; G0463